=== PATIENT | male | born 1945 | race Caucasian/White ===

== ENCOUNTER → 2018-05-18 | Outpatient (CLI) | payer MEDICARE ==
[~2018-05-18] MED LIST: REGADENOSON 0.4 MG/5 ML SYRINGE IV ONE
--- NOTE | 2018-05-18 12:04 | NM ---
EXAMINATION TYPE: NM stress lexiscan cardiolite DATE OF EXAM: 05/18/2018 COMPARISON: NONE HISTORY: TECHNIQUE: After the intravenous administration of 9.8 mCi Tc 99m Sestamibi - Cardiolite resting SPE CT images acquired 50 minutes post injection. The patient received 0.4mg Lexiscan, 25.7 mCi Tc 99m Sestamibi - Stress images obtained [address] injection FINDINGS: Review of stress and rest SPECT images demonstrates no distinct perfusion abnormality. Gated analysi s shows normal wall motion with an estimated left ventricular ejection fraction of 58 %. IMPRESSION: No scintigraphic evidence for reversible ischemia.
--- NOTE | 2018-05-18 12:41 | EST ---
EXERCISE STRESS AGE: 72 SEX: M HT: 6'2" WT: 210 PROTOCOL: Lexiscan Cardiolite Stress Test HEART RATE REST: 53 BLOOD PRESSURE REST: 140/80 MAXIMUM HEART RATE ACHIEVED: 94 MAXIMUM BLOOD PRESSURE: 157/74 85% MPHR: 125 100% MPHR: 147 INDICATIONS: Pre-surgical, abnormal EKG. CLINICAL INFORMATION: Baseline EKG shows sinus rhythm with right bundle branch block. Patient was given intravenous Lexiscan as per protocol. Did not have chest pain or diagnostic ST-segment depression. CONCLUSION: 1. Negative stress test by EKG criteria. 2. Cardiolite portion of the stress test will be reported separately. MMODL / IJN: [id number] /
== END ==
LOC: RADNMMAIN 08:20
PROVIDERS: ATTEND Internal Medicine
DX: R00.1 Bradycardia, unspecified (principal); I45.10 Unspecified right bundle-branch block
CPT/HCPCS: 93017; 78452; A9500; J2785